=== PATIENT | female | born 1995 | race Two or more races ===

== ENCOUNTER 2022-02-14 08:26 | Outpatient (REF) | payer BC, SELFPAY ==
[2022-02-14 09:02] LABS: COVID-19 Test Negative (Negative)
== END 2022-02-14 08:27 | disposition home or self-care (01) ==
LOC: HO.LAB 08:26
PROVIDERS: Visit Provider Internal Medicine
DX: Z20.822 Contact with and (suspected) exposure to COVID-19 (principal)
CPT/HCPCS: 87635; C9803

== ENCOUNTER 2022-07-07 08:03 | Outpatient (REF) | payer BC, SELFPAY ==
[2022-07-07 09:03] LABS: COVID-19 Test Negative (Negative)
== END 2022-07-07 08:04 | disposition home or self-care (01) ==
LOC: HO.LAB 08:03
PROVIDERS: Visit Provider Internal Medicine
DX: Z20.822 Contact with and (suspected) exposure to COVID-19 (principal)
CPT/HCPCS: 87635; C9803